=== PATIENT | female | born 1930 | race Hispanic/Latino ===

== ENCOUNTER 2017-09-17 13:49 | Emergency (ER) | payer MEDICARE ==
[2017-09-17 14:30] VITALS: BP 165/69; PULSE 102; RESP 16; TEMP 99; O2SAT 99
--- NOTE | 2017-09-17 14:47 | ED PDOC ---
HPI: General Adult Time Seen by Provider: 09/17/17 14:40 Chief Complaint (Nursing): Flu-like Symptoms History Per: Patient (this elderly female is brought to the ER by family because of achiness, sore throat, mild fever. She did not get the flu vaccine. She denies dyspnea, back pain, nausea or vomiting.) Past Medical History Reviewed: Historical Data Vital Signs: Last Vital Signs Temp 99.0 F 09/17/17 14:28 Pulse 102 H 09/17/17 14:28 Resp 16 09/17/17 14:28 BP 165/69 H 09/17/17 14:28 Pulse Ox 99 09/17/17 14:28 - Medical History PMH: Anxiety, Arthritis - Surgical History Surgical History: CABG - Family History Family History: States: Unknown Family Hx - Living Arrangements Living Arrangements: With Family - Home Medications Home Medications: Ambulatory Orders Medication Instructions Recorded Tramadol Hydrochloride [Tramadol 50 mg PO Q6H PRN #15 tab 08/28/15 HCl] Meclizine [Meclizine*] 25 mg PO Q8 #15 tab 07/03/16 - Allergies Allergies/Adverse Reactions: Allergies Allergy/AdvReac Type Severity Reaction Status Date / Time No Known Allergies Allergy Verified 07/03/16 20:09 Review of Systems ROS Statement: Except As Marked, All Systems Reviewed And Found Negative Constitutional: Positive for: Fever, Chills Gastrointestinal: Negative for: Nausea, Vomiting Musculoskeletal: Negative for: Neck Pain Physical Exam - Reviewed Nursing Documentation Reviewed: Yes Vital Signs Reviewed: Yes - Physical Exam Appears: Positive for: Well, Non-toxic, No Acute Distress Head Exam: Positive for: ATRAUMATIC, NORMAL INSPECTION, NORMOCEPHALIC Skin: Positive for: Normal Color, Warm, DRY Eye Exam: Positive for: Normal appearance ENT: Positive for: Pharyngeal Erythema (mild) Neck: Positive for: Normal Cardiovascular/Chest: Positive for: Regular Rate, Rhythm Respiratory: Positive for: CNT, Normal Breath Sounds Gastrointestinal/Abdominal: Positive for: Normal Exam, Soft Back: Positive for: Normal Inspection Extremity: Positive for: Normal ROM Neurologic/Psych: Positive for: Alert, Oriented - ECG O2 Sat by Pulse Oximetry: 99 Disposition - Clinical Impression Clinical Impression: Influenza-like symptoms - Patient ED Disposition Is Patient to be Admitted: Transfer of Care - Disposition Referrals: Ryder Watkins MD [Staff Provider] - Disposition: Transfer of Care Disposition Time: 14:48 Condition: STABLE Patient Signed Over To: Sofía Radford
--- NOTE | 2017-09-17 15:13 | ED PDOC ---
- ECG O2 Sat by Pulse Oximetry: 99 Medical Decision Making Medical Decision Makin:[address] Urban of pending ER workup, reassessment, and final disposition. 15:25 Patient negative for flu. Discussed at length the benefits of taking Tamiflu in the setting of high prevalence of flu. Patient given Rx for Tamiflu and Motrin, stable for discharge home. Advised patient to follow up with PMD in 24-48 hours. Clinical Impression: Influenza-like Symptoms Scribe Attestation: Documented by Malina Eid, acting as a scribe for Sofía Radford MD. Provider Scribe Attestation: All medical record entries made by the Scribe were at my direction and personally dictated by me. I have reviewed the chart and agree that the record accurately reflects my personal performance of the history, physical exam, medical decision making, and the department course for this patient. I have also personally directed, reviewed, and agree with the discharge instructions and disposition. Disposition - Clinical Impression Clinical Impression: Influenza-like symptoms - Disposition Referrals: Ryder Joy MD [Family Provider] - (FOLLOW UP WITH DR JOY IN 24-48 HOURS) Disposition: Routine/Home Disposition Time: 15:25 Condition: STABLE Additional Instructions: YOU ARE BEING TREATED FOR FLU DUE TO YOUR SYMPTOMS AND THE HIGH PREVALENCE OF FLU IN THE AREA. YOUR FLU TEST WAS NEGATIVE BUT CAN BE UNRELIABLE. Prescriptions: Ibuprofen [Motrin Tab] 600 mg PO Q8 PRN #60 tab PRN Reason: Pain, Moderate (4-7) Oseltamivir [Tamiflu] 75 mg PO BID #10 cap Instructions: Influenza (ED), Viral Syndrome (ED) Forms: [employer] (Czech)
== END 2017-09-17 16:12 | disposition home or self-care (01) ==
LOC: H.ER 13:49
DX: J11.1 Influenza due to unidentified influenza virus with other respiratory manifestations (principal)

== ENCOUNTER 2018-06-09 19:34 | Emergency (ER) | payer MEDICARE ==
[2018-06-09 19:42] VITALS: BP 120/72
[2018-06-09 19:46] VITALS: PULSE 93; RESP 16; TEMP 98.8; O2SAT 96
--- NOTE | 2018-06-09 22:55 | ED PDOC ---
HPI: Trauma/Fall - HPI Time Seen by Provider: 06/09/18 19:39 Chief Complaint (Nursing): Trauma Chief Complaint (Provider): Trauma History Per: Patient History/Exam Limitations: no limitations Injury Occurred (Timing): Hours Ago: (x1 hour ago) Additional Complaint(s): Emilia Braxton is a 88 year old female with a past medical history of chronic vertigo, who is brought to the emergency department by EMS for neck pain and left arm pain, onset x 1 hour ago. Patient states she was with her daughter and went to check the mail when she fell on her left side. Upon arrival to ED, patient was in a C-spine collar but stated that the collar was causing discomfort. Patient has left sided hip and arm pain but can move freely. She denies experiencing any loss of consciousness, nausea, vomiting, dizziness or any visual changes. PMD: Ryder Watkins Past Medical History Reviewed: Historical Data, Nursing Documentation, Vital Signs Vital Signs: Last Vital Signs Temp 98.8 F 06/09/18 19:45 Pulse 93 H 06/09/18 19:45 Resp 16 06/09/18 19:45 BP 120/72 06/09/18 19:45 Pulse Ox 96 06/09/18 19:45 - Medical History PMH: Anxiety, Arthritis, TIA - Surgical History Surgical History: CABG - Family History Family History: States: Unknown Family Hx - Home Medications Home Medications: Ambulatory Orders Medication Instructions Recorded Tramadol Hydrochloride [Tramadol 50 mg PO Q6H PRN #15 tab 08/28/15 HCl] RX: Meclizine [Meclizine*] 25 mg PO Q8 #15 tab 07/03/16 Oseltamivir [Tamiflu] 75 mg PO BID #10 cap 09/17/17 RX: Ibuprofen [Motrin Tab] 600 mg PO Q8 PRN #60 tab 09/17/17 traMADol [Ultram] 50 mg PO Q6 PRN #12 tab 06/09/18 - Allergies Allergies/Adverse Reactions: Allergies Allergy/AdvReac Type Severity Reaction Status Date / Time No Known Allergies Allergy Verified 07/03/16 20:09 Review of Systems ROS Statement: Except As Marked, All Systems Reviewed And Found Negative Eyes: Negative for: Vision Change Gastrointestinal: Negative for: Nausea Musculoskeletal: Positive for: Neck Pain, Arm Pain (left arm) Neurological: Negative for: Dizziness Physical Exam - Reviewed Nursing Documentation Reviewed: Yes Vital Signs Reviewed: Yes - Physical Exam Appears: Positive for: Non-toxic, No Acute Distress Head Exam: Positive for: ATRAUMATIC, NORMOCEPHALIC Skin: Positive for: Normal Color, Warm, Dry Eye Exam: Positive for: Normal appearance, EOMI ENT: Positive for: Normal ENT Inspection Neck: Positive for: Normal (No focal tenderness on c-spine) Cardiovascular/Chest: Positive for: Regular Rate, Rhythm. Negative for: Murmur Respiratory: Positive for: Normal Breath Sounds. Negative for: Respiratory Distress Gastrointestinal/Abdominal: Positive for: Normal Exam, Soft. Negative for: Tenderness Pelvic Exam: Positive for: Other (left hip tenderness; no deformity ) Back: Positive for: Normal Inspection. Negative for: L CVA Tenderness, R CVA Tenderness Extremity: Positive for: Normal ROM (no shortening or rotation and can move both lower extremities without any difficulty ). Negative for: Pedal Edema, Deformity Neurologic/Psych: Positive for: Alert, Oriented (x3). Negative for: Motor/Sensory Deficits - ECG O2 Sat by Pulse Oximetry: 96 (RA) Pulse Ox Interpretation: Normal - Progress ED Course And Treament: Provider removed C-spine collar Medical Decision Making Medical Decision Making: Initial Time: 19:56 Initial Impression: Initial Plan: --Lumbar spine complete --Motrin tab 600 mg po --Tylenol 975 mg PO --Cervical spine AP and lateral x-ray --LS spine AP/LAT x-ray LS x-ray COMMENTS: Standard views show no fracture. Grade 1 anterolisthesis of L4 on L5 , L5 on S1 is noted. Grade 1 retrolisthesis of L1 on L2 , L2 on L3 is noted. Severe multilevel degenerative changes are seen, demostrated by marked osteophytosis, vacuum disc phenomenon, loss of disk space heights and end-plate sclerosis. No evidence of lytic or blastic lesion. The pedicles are intact. Soft tissue structures are intact. IMPRESSION: 1. Grade 1 anterolisthesis of L4 on L5 , L5 on S1 is noted. Grade 1 retrolisthesis of L1 on L2 , L2 on L3 2. Severe multilevel degenerative changes. 3. No acute fracture. 4. Consider follow up with MRI if clinically warranted. X-rays show no fractures or dislocations Time: 20:40 Patient was able to ambulate and family feels comfortable to take her home and where she will be observed by them. Patient diagnosis includes back strain, hip strain, and neck strain and has been advised to take ibuprofen and Tylenol for pain and was given ultram for worsening pain. Scribe Attestation: Documented by Vadim Woods, acting as a scribe for Ken Fox MD. Provider Scribe Attestation: All medical record entries made by the Scribe were at my direction and personally dictated by me. I have reviewed the chart and agree that the record accurately reflects my personal performance of the history, physical exam, medical decision making, and the department course for this patient. I have also personally directed, reviewed, and agree with the discharge instructions and disposition. Disposition - Clinical Impression Clinical Impression: Back strain, Contusion, hip, Neck muscle strain - Disposition Disposition: Routine/Home Disposition Time: 22:00 Condition: STABLE Prescriptions: traMADol [Ultram] 50 mg PO Q6 PRN #12 tab PRN Reason: muscle/back pain Instructions: Muscle Strain, Low Back Pain (DC), Cervical Muscle Strain Forms: [employer] (Sammarinese)
--- NOTE | 2018-06-10 15:21 | RAD ---
Date of service: 06/09/2018 PROCEDURE: Radiographs of the Lumbar Spine. HISTORY: pain COMPARISON: Comparison made with prior study dated 02/05/2010. FINDINGS: BONES: No acute compression fractures nor retropulsed fragments. Minor chronic anterior stature loss of T11 and T10 segments. There is also slight posterior subluxation of L1 over L2 and T12 over L1. Mild levoscoliosis centered at the L2-L3 level. DISC SPACES: Multilevel degenerative spondylosis. Changes include varying degrees of disc space narrowing, endplate eburnation with vacuum disc phenomena at several levels. Multilevel small to medium-sized marginal anterolateral osteophytes are present. OTHER FINDINGS: None. No acute fractures. Multilevel degenerative spondylosis with mild levoscoliosis IMPRESSION:
--- NOTE | 2018-06-10 16:55 | RAD ---
Date of service: 06/09/2018 PROCEDURE: Cervical Spine Radiographs. HISTORY: Pain. COMPARISON: Comparison made with prior radiographs of the cervical spine 09/04/2009. FINDINGS: Note that the tip of the odontoid is obscured by overlying occiput in the open-mouth projection. Additionally, inferior aspect of the C6 and all of C7 are not visualized on lateral projection. BONES: No acute compression fractures no retropulsed fragments seen within limitation of the exam. Minor chronic anterior stature loss of the C5 and to a lesser degree C4 segments. Slight anterior subluxation C4 over C5 increased from prior study DISC SPACES: Multilevel degenerative spondylosis most notably affecting the C5-C6 and to a lesser degree C4-4 C5 and less so the C3-C4 segments. Varying degrees of disc space narrowing endplate eburnation with anterolateral and smaller posterior osteophyte formation. The uncovertebral facet joints are hypertrophic throughout. SOFT TISSUES: Normal. No prevertebral soft tissue swelling. OTHER FINDINGS: None. IMPRESSION: Limited exam as described chronic anterior stature loss C5 and to a lesser degree C4 segments felt to be degenerative in origin.. There is slight anterior subluxation C4 over C5. Multilevel degenerative spondylosis.
--- NOTE | 2018-06-10 17:24 | RAD ---
PROCEDURE: Left Hip X-ray Radiographs. HISTORY: pain COMPARISON: None. FINDINGS: BONES: Normal. No fracture. JOINTS: Degenerative osteoarthritis both hip joints SOFT TISSUES: Normal. OTHER FINDINGS: Degenerative spondylosis lumbosacral spine IMPRESSION: No evidence of acute displaced fracture nor dislocation. Degenerative changes both hip joints.
== END 2018-06-09 22:12 | disposition home or self-care (01) ==
LOC: H.ER 19:34
DX: S39.012A Strain of muscle, fascia and tendon of lower back, initial encounter (principal); S16.1XXA Strain of muscle, fascia and tendon at neck level, initial encounter; S70.00XA Contusion of unspecified hip, initial encounter; Z86.73 Personal history of transient ischemic attack (TIA), and cerebral infarction without residual deficits; Z95.1 Presence of aortocoronary bypass graft; W19.XXXA Unspecified fall, initial encounter